=== PATIENT | male | born 1955 | race American Indian/Alaskan Native ===

== ENCOUNTER 2016-10-15 09:55 | Outpatient (CLI) | payer OTHER ==
--- NOTE | 2016-10-15 10:40 | XRay Report ---
Right ankle 2 views: History: Ankle and foot problem. Findings: Severe arthritic changes are noted in the talotibial joint with mild arthritic changes in the subtalar joint. No fracture or dislocation. Small spur posterior superior calcaneus. Impression: Severe arthritic changes ankle joint.
== END 2016-10-15 09:56 | disposition home or self-care (01) ==
LOC: XRAY 09:55
PROVIDERS: ATTEND Internal Medicine
DX: M19.071 Primary osteoarthritis, right ankle and foot (principal); M77.31 Calcaneal spur, right foot; E78.00 Pure hypercholesterolemia, unspecified; K21.9 Gastro-esophageal reflux disease without esophagitis